=== PATIENT | female | born 1985 | race American Indian/Alaskan Native ===

== ENCOUNTER 2018-01-08 07:32 | Day surgery (SDC) | payer OTHER ==
[2018-01-08] MEDS ORDERED: NACL 0.9% 500 ML 500 ML IV SCH (09:00)
[2018-01-08 09:16] LABS: Hematocrit 44.3 % (30.3-42.9); Hemoglobin 14.8 gm/dl (10.1-14.3); Mean Corpuscular HGB Conc 33 % (30-34); Mean Corpuscular Hemoglobin 27 pg (28-32); Mean Corpuscular Volume 82 fl (79-97); Platelet Count 269 K/mm3 (140-440); Red Blood Count 5.43 M/mm3 (3.65-5.03); Red Cell Distribution Width 14.2 % (13.2-15.2)
[2018-01-08 09:24] LABS: BUN/Creatinine Ratio 17; Blood Urea Nitrogen 12 mg/dL (7-17); Calcium 9.2 mg/dL (8.4-10.2); Hemolysis Index 2
[2018-01-08 09:26] LABS: INR 0.89 (0.87-1.13)
[2018-01-08] MEDS ORDERED: ECOTRIN PO ONE (10:00)
[2018-01-08 10:37] LABS: Platelet Estimate Consistent w Auto; RBC Morphology Normal; Total Cells Counted 100
[2018-01-08] MEDS ORDERED: NITROGLYCERIN SYRINGE 3 ML ONE (11:21)
[2018-01-08] MEDS ORDERED: XYLOCAINE 2% INFILTRATI ONE (11:21)
[2018-01-08] MEDS ORDERED: HEPARIN 10,000 UNITS/10 ML ONE (11:21)
[2018-01-08] MEDS ORDERED: HEPARIN/NS 5000 UNIT/500ML(CATH LAB) 1,000 ML IR ONE (11:21)
[2018-01-08] MEDS ORDERED: CALAN ONE (11:21)
[2018-01-08] MEDS: VERSED ONE ×2 (11:56→12:01)
[2018-01-08] MEDS: SUBLIMAZE ONE ×2 (11:56→12:00)
--- NOTE | 2018-01-08 12:35 | Short Stay Summary ---
Short Stay Documentation Date of service: 01/08/18 - History H&P: obtained from office - Allergies and Medications Current Medications: Allergies peanut Allergy (Unverified 01/08/18 07:32) Itching, HIVES Home Medications Medication Instructions Recorded Confirmed Last Taken Type Amlodipine/Valsartan/Hcthiazid 01/08/18 01/07/18 History [Mmadn-Kbzcs-Xppg 10-320-25 mg] Metoprolol SUCCINATE ER TAB 50 mg PO QDAY 01/08/18 01/08/18 01/07/18 History Active Medications Sodium Chloride (Nacl 0.9% 500 Ml) 500 mls @ 50 mls/hr IV DIRECT RAMONA Stop: 01/08/18 18:59 Last Admin: 01/08/18 08:47 Dose: 50 mls/hr - Brief post op/procedure progress note Date of procedure: 01/08/18 Pre-op diagnosis: chf Post-op diagnosis: same Procedure: see report Anesthesia: local Estimated blood loss: none Pathology: none - Disposition Condition at discharge: Good Disposition: [id number] TO HOME OR SELFCARE - Discharge Diagnoses (1) Cardiomyopathy Status: Chronic Qualifiers: Cardiomyopathy type: unspecified Qualified Code(s): I42.9 - Cardiomyopathy , unspecified (2) Systolic heart failure Status: Chronic Qualifiers: Heart failure chronicity: acute on chronic Qualified Code(s): I50.23 - Acute on chronic systolic (congestive) heart failure Short Stay Discharge Plan Activity: advance as tolerated, no driving until cleared by PCP Diet: low fat, low cholesterol, low salt Wound: keep clean and dry Follow up with: AZAR CLIFTON MD [Primary Care Provider] - 7 Days
--- NOTE | 2018-01-08 13:01 | Cardiac Catherization Report ---
LEFT HEART CATHETERIZATION CLINICAL INFORMATION: This is a 32-year-old female with a LifeVest, found to have severe LV dysfunction, [place] Heart Classification 3, is here for left heart catheterization. Left heart catheterization performed. The patient has moderate sedation, 1 mg Versed and 25 mcg of fentanyl for a left heart catheterization was performed via the right radial artery, sterile technique, local anesthesia, 6-Tongan radial sheath inserted. PROCEDURE FINDINGS: There is great tortuosity in the right innominate and had to use a Glidewire and engage the left system, subselectively with JL3.5 which revealed left main large and patent, bifurcates to large LAD that is patent from proximally and distally. Diagonal 1, diagonal 2, a large caliber vessel, patent. Circumflex and AV groove is large caliber is patent. OM1 and OM2 are medium caliber vessel, patent. RCA engaged with an AR MOD catheter, it is a large dominant vessel, patent from proximally and distally. PDA and PLV are small caliber vessels, patent. LV gram done in ABBE shows severe LV dysfunction, EF 20-25%. LVEDP of 40 mmHg, LV is 125, aortic is 123/88. No gradient across the aortic valve on pullback. 5-Tongan catheters were taken over a guidewire, 6-Tongan radial sheath was discontinued. Radial dressing applied. No hematoma, no bleeding. SUMMARY: 1. Normal coronaries, right dominant system, large epicardial vessels. 2. Elevated left end-diastolic pressure 40 mmHg. RECOMMENDATION: Continue medical management of the patient's congestive heart failure. JOB# [id number] WILLOW/JONY
--- NOTE | 2018-01-08 13:20 | Cardiac Catherization Report ---
ADDENDUM The patient has moderate sedation. 1 mg of Versed and 25 mcg fentanyl. Start time was 11:56 and end time 12:12 . Total sedation time was 16 minutes. JOB# [id number] VRM/NTS
[2018-01-08 15:39] VITALS: BP 120/87
[2018-01-08] MEDS ORDERED: TYLENOL PO ONE (16:00)
== END 2018-01-08 07:33 | disposition home or self-care (01) ==
LOC: CATHLABREC 07:32
PROVIDERS: ATTEND Internal Medicine
DX: I11.0 Hypertensive heart disease with heart failure (principal); I50.23 Acute on chronic systolic (congestive) heart failure; Z87.891 Personal history of nicotine dependence; Z91.010 Allergy to peanuts
CPT/HCPCS: 36415; 80048; 85007; 85025; 85610; 85730; 93005; 93010; 93458; 99156; 99157; C1769; C1894; J1644; J2250; J3010; J7040; Q9967